=== PATIENT | male | born 2000 | race Two or more races ===

== ENCOUNTER 2022-03-01 00:23 | Observation (INO) ==
[2022-03-01] MEDS ORDERED: KETOROLAC 30 MG/1 ML VIAL IV STA (00:49)
[2022-03-01] MEDS ORDERED: ONDANSETRON 4 MG/2 ML VIAL IV STA (00:49)
[2022-03-01] MEDS ORDERED: SODIUM CHLORIDE 0.9% 1,000 ML IV STA (00:49)
[2022-03-01 01:23] LABS: Basophils # 0.2 10*3/uL (0.0-0.2); Basophils % 0.8 % (0.0-0.8); Eosinophils # 0.1 10*3/uL (0.0-0.87); Eosinophils % 0.5 % (0.00-10.9); Hematocrit 44.6 VOL% (42.0-52.0); Immature Granulocytes % 0.5 %; Immature Granulocytes Absolute 0.09 #; Lymphocytes # 2.3 10*3/uL (1.4-4.0); Lymphocytes % 11.4 % (21.2-54.2); Mean Corpuscular HGB Conc 33.6 GM/DL (32-36); Mean Corpuscular Volume 88.1 FL (87-102); Mean Platelet Volume 10.6 FL (9.6-12.0); Monocytes # 1.3 10*3/uL (0.11-0.8); Monocytes % 6.7 % (1.7-12.7); Neutrophils % 80.1 % (38.7-73.9); Platelet Count 400 T/CUMM (130-400); Red Blood Count 5.06 MC/CUMM (3.8-5.5); Red Cell Distribution Width 11.9 % (9.3-17.3); White Blood Count 19.7 T/CUMM (4-12)
[2022-03-01 01:39] LABS: Albumin 4.1 G/DL (3.4-5.0); Bilirubin,Total 0.4 MG/DL (0.20-1.00); Bilirubin,Urine Negative (Negative); Blood, Urine Trace mg/dL (Negative); Calcium 9.8 MG/DL (8.5-10.1); Glucose,Urine (UA) Negative (Negative); Ketones,Urine Negative (Negative); Nitrite,Urine Negative (Negative); Osmolality,Calculated 273.8 MOS/KG (273-304); Protein,Urine Trace mg/dL (Negative); RBC,Urine 1 /HPF (0-4); Total Protein 7.8 G/DL (6.4-8.2); Urine Appearance Clear (Clear); Urine Color Yellow (Yellow); Urine Specific Gravity >= 1.030 (1.001-1.035); Urine Urobilinogen 0.2 eU/dL (<2.0); Urine pH 6.5 (4.5-8.0)
[2022-03-01] MEDS ORDERED: PIPERACILLIN/TAZOBACTAM 3,375 MG in SODIUM CHLORIDE 0.9% 100 ML IV STA (02:18)
[2022-03-01] MEDS ORDERED: PIPERACILLIN/TAZOBACTAM 3,375 MG in SODIUM CHLORIDE 0.9% 100 ML IV SCH (02:30)
[2022-03-01] MEDS ORDERED: MORPHINE 2 MG/1 ML SYRINGE IV PRN (02:30)
[2022-03-01] MEDS ORDERED: ONDANSETRON 4 MG/2 ML VIAL IV PRN (02:30)
[2022-03-01] MEDS ORDERED: MORPHINE 2 MG/1 ML SYRINGE IV STA (03:10)
[2022-03-01] MEDS: DEXTROSE 5% NACL 0.45% 1,000 ML IV SCH ×3 (04:29→20:06)
[2022-03-01 05:14] LABS: Basophils # 0.1 10*3/uL (0.0-0.2); Basophils % 0.7 % (0.0-0.8); Eosinophils % 0.2 % (0.00-10.9); Hematocrit 42.8 VOL% (42.0-52.0); Hemoglobin 14.2 GM/DL (14.0-18.0); Immature Granulocytes % 0.6 %; Immature Granulocytes Absolute 0.11 #; Lymphocytes # 2.2 10*3/uL (1.4-4.0); Lymphocytes % 11.1 % (21.2-54.2); Mean Corpuscular HGB Conc 33.2 GM/DL (32-36); Mean Platelet Volume 10.6 FL (9.6-12.0); Monocytes # 1.3 10*3/uL (0.11-0.8); Monocytes % 6.6 % (1.7-12.7); Neutrophils % 80.8 % (38.7-73.9); Platelet Count 386 T/CUMM (130-400); Red Blood Count 4.81 MC/CUMM (3.8-5.5); Red Cell Distribution Width 11.9 % (9.3-17.3); White Blood Count 19.5 T/CUMM (4-12)
[2022-03-01 05:43] LABS: Calcium 9.5 MG/DL (8.5-10.1); Potassium 3.7 MMOL/L (3.5-5.1)
[2022-03-01] MEDS: PANTOPRAZOLE 40 MG VIAL IV SCH (09:14)
[2022-03-01] MEDS: PIPERACILLIN/TAZOBACTAM 3,375 MG in SODIUM CHLORIDE 0.9% 100 ML IV SCH ×2 (09:15→18:37)
[2022-03-02] MEDS: PIPERACILLIN/TAZOBACTAM 3,375 MG in SODIUM CHLORIDE 0.9% 100 ML IV SCH ×2 (01:06→10:50)
[2022-03-02] MEDS: DEXTROSE 5% NACL 0.45% 1,000 ML IV SCH ×2 (04:17→12:37)
[2022-03-02] MEDS ORDERED: LACTATED RINGERS 1,000 ML IV SCH (08:00)
[2022-03-02] MEDS ORDERED: INDOCYANINE GREEN 25 MG VIAL IV ONE (08:00)
[2022-03-02] MEDS ORDERED: ROCURONIUM 50 MG/5 ML VIAL IV ONE (08:21)
[2022-03-02] MEDS ORDERED: LIDOCAINE 2% 5 ML VIAL ONE (08:21)
[2022-03-02] MEDS ORDERED: propofoL 200 MG/20 ML VIAL IV ONE (08:21)
[2022-03-02] MEDS ORDERED: MIDAZOLAM 2 MG/2 ML VIAL ONE (08:21)
[2022-03-02] MEDS ORDERED: ONDANSETRON 4 MG/2 ML VIAL ONE (08:21)
[2022-03-02] MEDS ORDERED: fentaNYL 100 MCG/2 ML VIAL ONE (08:21)
[2022-03-02] MEDS ORDERED: LIDOCAINE 1%/EPI INJ 20 ML VIAL ONE (08:32)
[2022-03-02] MEDS ORDERED: TISSUE ADHESIVE 1 EACH APPLICATOR TOP ONE (08:32)
[2022-03-02] MEDS ORDERED: BUPIVACAINE MPF 0.25% 10 ML VIAL ONE (08:32)
[2022-03-02] MEDS ORDERED: GLYCOPYRROLATE 0.4 MG/2 ML VIAL ONE (09:27)
[2022-03-02] MEDS ORDERED: ACETAMINOPHEN INJ 1,000 MG/100 ML VIAL IV ONE (09:27)
[2022-03-02] MEDS ORDERED: KETOROLAC 30 MG/1 ML VIAL ONE (09:27)
[2022-03-02] MEDS ORDERED: NEOSTIGMINE 10 MG/10 ML VIAL ONE (09:27)
[2022-03-02] MEDS ORDERED: DESFLURANE 1 UNIT/15 MINUTE INH ONE (09:36)
[2022-03-02] MEDS: PANTOPRAZOLE 40 MG VIAL IV SCH (10:07)
[2022-03-02 12:32] VITALS: BP 142/82
== END 2022-03-02 14:19 | disposition home or self-care (01) ==
LOC: N.ED 00:23 → N.2W 00:23
PROVIDERS: ADMIT Surgery; ATTEND Surgery